=== PATIENT | female | born 1945 | race Caucasian/White ===

== ENCOUNTER → 2019-01-30 | Outpatient (REF) | payer MEDICARE ==
[~2019-01-30] MED LIST: AMIODARONE200 MG PO; AMIODARONE400 MG PO; AMLODIPINE5 MG PO; ASPIRIN ADULT L81 M2 PO; HYDROCHLOROT25 MG PO; HYDROCO/APAP1 T11 PO; LISINOPRIL20 M1 OR; METOPROLOL SUCC25 MG PO; NYSTATIN100000 M4 TOP; SIMVASTATIN40 MG PO; SPIRONOLACT25 MG PO; VENLAFAXINE75 M1 PO; XARELTO20 MG PO; ZOCOR20 MG OR
== END | disposition home or self-care (01) ==
LOC: LAB 14:37 → DI 14:37
PROVIDERS: ATTEND Nurse Practitioner
DX: R05 Cough (principal)

== ENCOUNTER 2021-10-09 08:28 | Emergency (ER) | payer MEDICARE ==
[~2021-10-09] VITALS: Ht 165.1 cm; Wt 81.3 kg
[2021-10-09] MEDS ORDERED: FISH OIL1000 MG PO (09:59)
[2021-10-09] MEDS ORDERED: SLOW-MAG PO (10:00)
[2021-10-09] MEDS ORDERED: CO Q-10200 M1 PO (10:01)
[2021-10-09] MEDS ORDERED: SPIRONOLACTONE25 MG PO (10:01)
[2021-10-09] MEDS ORDERED: SINGULAIR10 MG PO (10:02)
[2021-10-09] MEDS ORDERED: SIMVASTATIN10 MG PO (10:02)
[2021-10-09] MEDS ORDERED: ESCITALOPRAM OX10 MG PO (10:03)
[2021-10-09] MEDS ORDERED: ASPIRIN325 MG PO (10:03)
[2021-10-09] MEDS ORDERED: OS-CAL 500500 M1 PO (10:03)
[2021-10-09] MEDS ORDERED: VOLTAREN75 MG PO (10:05)
[2021-10-09 10:15] VITALS: BP 148/66
== END 2021-10-09 10:15 | disposition home or self-care (01) ==
LOC: ED 08:28
DX: S83.92XA Sprain of unspecified site of left knee, initial encounter (principal); I10 Essential (primary) hypertension; I48.91 Unspecified atrial fibrillation; E78.5 Hyperlipidemia, unspecified; X50.0XXA Overexertion from strenuous movement or load, initial encounter